=== PATIENT | male | born 1995 | race Caucasian/White ===

== ENCOUNTER 2022-12-12 01:55 | Inpatient (IN) | payer MEDICAID ==
[~2022-12-12] VITALS: Ht 172.7 cm; Wt 26.8 kg
[2022-12-12 02:01] VITALS: BP 128/71; PULSE 64; RESP 18; TEMP 97.5; O2SAT 100
[2022-12-12 03:32] LABS: ANION GAP 8.7 (8-16); CALCIUM 8.9 mg/dL (8.5-10.1); CARBON DIOXIDE 30.7 mmol/L (21-32); CREATININE 0.8 mg/dL (0.6-1.3); POTASSIUM 4.4 mmol/L (3.5-5.1)
[2022-12-12] MEDS ORDERED: ASPIRIN 325 MG TAB PO ONE (03:55)
[2022-12-12 04:06] LABS: BASOPHILS # (AUTO) 0.1 K/uL (0.00-0.22); BASOPHILS % (AUTO) 1.1 % (0.0-2.0); EOSINOPHILS # (AUTO) 0.6 K/uL (0-0.4); EOSINOPHILS % (AUTO) 10.5 % (0.0-4.0); HEMATOCRIT 42.7 % (36-52); HEMOGLOBIN 14.9 g/dL (12.0-18.0); LYMPHOCYTES # (AUTO) 1.9 K/uL (2.0-11.5); LYMPHOCYTES % (AUTO) 32.7 % (20.5-51.1); MEAN CORPUSCULAR HEMOGLOBIN 30 pg (27-31); MEAN CORPUSCULAR HGB CONC 35 g/dL (33-37); MEAN CORPUSCULAR VOLUME 85.8 fL (80-94); MONOCYTES # (AUTO) 0.7 K/uL (0.8-1.0); MONOCYTES % (AUTO) 12.1 % (1.7-9.3); NEUTROPHILS # (AUTO) 2.6 K/uL (1.8-7.7); NEUTROPHILS % (AUTO) 43.6 % (42.2-75.2); PLATELET COUNT (AUTO) 235 K/uL (140-450); RED BLOOD CELL COUNT(AUTO) 4.97 MIL/uL (4.20-6.10); RED CELL DISTRIBUTION WIDTH 12.5 % (11.6-13.7)
[2022-12-12] MEDS ORDERED: guaiFENesin DM 200/20 MG-10 ML 10 ML UDC PO PRN (04:20)
[2022-12-12] MEDS ORDERED: DOCUSATE SODIUM 100 MG GELCAP PO PRN (04:20)
[2022-12-12] MEDS ORDERED: HYDROcodone/APAP 7.5/325 MG 1 TAB PO PRN (04:20)
[2022-12-12] MEDS ORDERED: ZOLPIDEM 5 MG TAB PO PRN (04:20)
[2022-12-12] MEDS ORDERED: ACETAMINOPHEN 325 MG TAB PO PRN (04:20)
[2022-12-12] MEDS ORDERED: ONDANSETRON 4 MG/2 ML VIAL IM/IVP PRN (04:20)
[2022-12-12] MEDS ORDERED: POTASSIUM CHLORIDE 10 MEQ TABER PO PRN (04:20)
[2022-12-12 05:24] LABS: AMPHETAMINE, URINE NEGATIVE ng/ml (NEG <=1000); BARBITURATE, URINE NEGATIVE ng/ml (NEG <=200); BENZODIAZEPINE, URINE NEGATIVE ng/mL (NEG <=200); CANNABINOID, URINE NEGATIVE ng/mL (NEG <=50); COCAINE, URINE NEGATIVE ng/mL (NEG <=300); OPIATE, URINE NEGATIVE ng/mL (NEG <=2000); PHENCYCLIDINE SCREEN,URINE NEGATIVE ng/mL (NEG <=25)
[2022-12-12 08:00] VITALS: BP 116/71; PULSE 64; PULSE 70; RESP 18; TEMP 97.1; O2SAT 100
[2022-12-12] MEDS: PANTOPRAZOLE 40 MG TABEC PO SCH (09:00)
[2022-12-12] MEDS ORDERED: LORazepam 0.5 MG TAB PO PRN (10:00)
[2022-12-12] MEDS: NACL 0.9% 1,000 ML IV SCH ×2 (10:14→21:30)
[2022-12-12 12:00] VITALS: BP 103/68; PULSE 55; PULSE 64; RESP 18; TEMP 97.1; O2SAT 100
[2022-12-12 16:00] VITALS: BP 103/57; PULSE 54; PULSE 56; RESP 18; TEMP 98; O2SAT 100
[2022-12-12] MEDS ORDERED: ESCITALOPRAM 20 MG TAB PO SCH (17:00)
[2022-12-12] MEDS: IBUPROFEN 600 MG TAB PO SCH (18:50)
[2022-12-12 20:00] VITALS: BP 99/60; PULSE 59; PULSE 61; RESP 17; TEMP 98; O2SAT 98
[2022-12-12] MEDS ORDERED: ESCI20TA PO (20:18)
[2022-12-13] VITALS: BP 102/64; PULSE 66; PULSE 67; RESP 17; TEMP 97.9; O2SAT 97
[2022-12-13 04:00] VITALS: BP 96/58; PULSE 52; PULSE 55; RESP 17; TEMP 98.4; O2SAT 100
[2022-12-13 06:55] LABS: BASOPHILS # (AUTO) 0.1 K/uL (0.00-0.22); BASOPHILS % (AUTO) 1.1 % (0.0-2.0); EOSINOPHILS # (AUTO) 0.5 K/uL (0-0.4); EOSINOPHILS % (AUTO) 10.1 % (0.0-4.0); HEMATOCRIT 41.5 % (36-52); HEMOGLOBIN 14.2 g/dL (12.0-18.0); LYMPHOCYTES # (AUTO) 1.7 K/uL (2.0-11.5); LYMPHOCYTES % (AUTO) 33.5 % (20.5-51.1); MEAN CORPUSCULAR HEMOGLOBIN 30 pg (27-31); MEAN CORPUSCULAR HGB CONC 34 g/dL (33-37); MONOCYTES # (AUTO) 0.5 K/uL (0.8-1.0); NEUTROPHILS # (AUTO) 2.4 K/uL (1.8-7.7); NEUTROPHILS % (AUTO) 46.3 % (42.2-75.2); PLATELET COUNT (AUTO) 226 K/uL (140-450); RED BLOOD CELL COUNT(AUTO) 4.82 MIL/uL (4.20-6.10); RED CELL DISTRIBUTION WIDTH 12.5 % (11.6-13.7); WHITE BLOOD COUNT (AUTO) 5.2 K/uL (4.8-10.8)
[2022-12-13 07:08] LABS: MAGNESIUM 1.9 mg/dL (1.8-2.4); PHOSPHORUS 3.9 mg/dL (2.5-4.9)
[2022-12-13 07:16] LABS: ALBUMIN 3.6 g/dL (3.4-5.0); ANION GAP 11.2 (8-16); CALCIUM 8.4 mg/dL (8.5-10.1); CREATININE 0.8 mg/dL (0.6-1.3); POTASSIUM 4.2 mmol/L (3.5-5.1); TOTAL PROTEIN, SERUM 6.6 g/dL (6.4-8.2)
[2022-12-13 08:00] VITALS: BP 93/55; PULSE 56; PULSE 57; RESP 18; RESP 20; TEMP 97.1; O2SAT 100; O2SAT 98
[2022-12-13] MEDS: IBUPROFEN 600 MG TAB PO SCH ×2 (08:41→11:33)
[2022-12-13] MEDS: PANTOPRAZOLE 40 MG TABEC PO SCH (08:41)
[2022-12-13] MEDS ORDERED: ASPIRIN 81 MG TAB.CHEW PO SCH (09:00)
[2022-12-13] MEDS ORDERED: ALPR0.5T2 PO (10:25)
[2022-12-13 12:00] VITALS: BP_SYST 106; BP_SYST 96; BP_DIAS 58; BP_DIAS 70; PULSE 55; PULSE 73; PULSE 82; RESP 17; RESP 18; TEMP 98; TEMP 98.4; O2SAT 100; O2SAT 98
[2022-12-13] MEDS: NACL 0.9% 1,000 ML IV SCH (13:40)
[2022-12-13 14:39] VITALS: BP 106/70; PULSE 82; RESP 18; TEMP 98
[2022-12-14] MEDS ORDERED: ALPR0.252 PO (10:02)
== END 2022-12-13 17:40 | disposition home or self-care (01) | DRG 207 ==
LOC: MED 01:55 → MTU 04:19
PROVIDERS: ADMIT Student in an Organized Health Care Education/Training Program; ATTEND Student in an Organized Health Care Education/Training Program
DX: I30.9 Acute pericarditis, unspecified (principal); I42.9 Cardiomyopathy, unspecified; E11.9 Type 2 diabetes mellitus without complications; F41.1 Generalized anxiety disorder; I48.91 Unspecified atrial fibrillation; Z72.0 Tobacco use
CPT/HCPCS: 36415; 71045; 80048; 80053; 80305; 83735; 83880; 84100; 84484; 85025; 87081; 93005; 99285; J1644; Q0092